=== PATIENT | male | born 1980 | race Caucasian/White ===

== ENCOUNTER → 2018-12-16 | Outpatient (CLI) | payer BC | END | disposition home or self-care (01) | LOC: RAD 11:14 | DX: N20.0 Calculus of kidney (principal); Z87.442 Personal history of urinary calculi ==

== ENCOUNTER 2020-07-01 20:56 | Emergency (ER) | payer BC ==
[~2020-07-01] VITALS: Ht 170.1 cm; Wt 86.2 kg
[2020-07-01 21:30] LABS: BASO # 0.1 10*3/uL (0.0-0.1); BASO % 0.3 % (0.0-1.0); EOS # 0.1 10*3/uL (0.0-0.4); EOS % 0.7 % (1.0-4.0); HEMATOCRIT 46.4 % (42.0-52.0); LYMPH # 2.3 10*3/uL (1.3-4.4); LYMPH % 13.9 % (27.0-41.0); MEAN CELL VOLUME 87.9 fl (80.0-94.0); MEAN CORPUSCULAR HGB 29.2 pg (27.0-31.0); MEAN CORPUSCULAR HGB CONC 33.2 g/dl (33.0-37.0); MEAN PLATELET VOLUME 10.3 fl (9.6-12.3); MONO # 1.1 10*3/uL (0.1-1.0); MONO % 6.3 % (3.0-9.0); NEUT # 13.1 10*3/uL (2.3-7.9); NEUT % 78.4 % (47.0-73.0); PLATELET COUNT AUTOMATED 275 10*3/uL (130-400); RED BLOOD COUNT 5.28 10*6/uL (4.50-5.90); RED CELL DISTRI WIDTH 12.4 % (0-14.5); WHITE BLOOD COUNT 16.7 10*3/uL (4.8-10.8)
[2020-07-01 21:45] LABS: BUN 17 mg/dl (7-24); CHLORIDE 103 mmol/L (98-107); POTASSIUM 3.7 mmol/L (3.5-5.1); SODIUM 137 mmol/L (136-145)
[2020-07-02 00:36] LABS: BILIRUBIN NEGATIVE (NEGATIVE); BLOOD 2+ (NEGATIVE); CLARITY CLEAR (CLEAR); COLOR YELLOW (YELLOW); GLUCOSE NEGATIVE (NEGATIVE); KETONE NEGATIVE (NEGATIVE); LEUKO ESTERASE NEGATIVE (NEGATIVE); NITRITE NEGATIVE (NEGATIVE); UROBILINOGEN 0.2 E.U./dl (0.2-1.0)
[2020-07-02 00:39] LABS: RBC 21-30 rbc/hpf (0-2); WBC 0-2 wbc/hpf (0-5)
[2020-07-02] MEDS ORDERED: LEVAQUIN750 M1 PO (01:23)
[2020-07-02] MEDS ORDERED: ZOFRAN4 MG PO (01:23)
[2020-07-02] MEDS ORDERED: PERCOCET 5-3251 EACH PO (01:23)
== END 2020-07-02 02:10 | disposition home or self-care (01) ==
LOC: ED 20:56
PROVIDERS: Internal Medicine
DX: N13.2 Hydronephrosis with renal and ureteral calculous obstruction (principal); N13.9 Obstructive and reflux uropathy, unspecified; Z87.442 Personal history of urinary calculi

== ENCOUNTER 2021-04-25 14:45 | Emergency (ER) | payer BC ==
[~2021-04-25] VITALS: Ht 167.6 cm; Wt 86.2 kg
[~2021-04-25 14:45] MED LIST: LEVAQUIN750 M1 PO; PERCOCET 5-3251 EACH PO; ZOFRAN4 MG PO
[2021-04-25] MEDS ORDERED: HYDROCODONE-AC1 EAC1 PO (16:53)
== END 2021-04-25 16:58 | disposition home or self-care (01) ==
LOC: ED 14:45
DX: S83.015A Lateral dislocation of left patella, initial encounter (principal); Z79.2 Long term (current) use of antibiotics; Z79.899 Other long term (current) drug therapy; Z98.890 Other specified postprocedural states; W18.42XA Slipping, tripping and stumbling without falling due to stepping into hole or opening, initial encounter; Y93.89 Activity, other specified; Y92.096 Garden or yard of other non-institutional residence as the place of occurrence of the external cause; Y99.8 Other external cause status

== ENCOUNTER → 2021-04-27 | Outpatient (CLI) | payer BC ==
[~2021-04-27] MED LIST changes: +HYDROCODONE-AC1 EAC1 PO
== END | disposition home or self-care (01) ==
LOC: RAD 11:16
DX: S83.005D Unspecified dislocation of left patella, subsequent encounter (principal); X58.XXXD Exposure to other specified factors, subsequent encounter